=== PATIENT | male | born 1960 | race Caucasian/White ===

== ENCOUNTER 2017-08-27 23:00 | Emergency (ER) | payer SELFPAY ==
[~2017-08-27] VITALS: Ht 172.7 cm; Wt 81.8 kg
[2017-08-27] MEDS ORDERED: ATEN25TA PO (23:03)
[2017-08-28] MEDS ORDERED: ATENOLOL 50 MG TABLET PO ONE
[2017-08-28 00:38] VITALS: BP 166/71
== END 2017-08-28 00:40 | disposition home or self-care (01) ==
LOC: EMS 23:01
DX: I10 Essential (primary) hypertension (principal); Z02.89 Encounter for other administrative examinations
CPT/HCPCS: 99284